=== PATIENT | female | born 2000 | race Caucasian/White ===

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

== ENCOUNTER → 2018-08-29 | Outpatient (REF) | payer OTHER, MEDICARE ==
[~2018-08-29] MED LIST: CIPR5SUS PO; FLAG250T PO; IBUP-1114 PO; IBUP1TAB7 PO; MACR100C43 PO; MAPA500T2 PO; PRENTAB9 PO; TUMS500C PO; ZOFR4TAB14 PO
== END ==
LOC: M SFHCPLAZ 17:49
PROVIDERS: ATTEND Dermatology
DX: D49.2 Neoplasm of unspecified behavior of bone, soft tissue, and skin (principal)

== ENCOUNTER → 2020-02-04 | Outpatient (CLI) | payer SELFPAY | LOC: M LABSMTC 12:45 | PROVIDERS: ATTEND Pediatrics | DX: Z20.828 Contact with and (suspected) exposure to other viral communicable diseases (principal) ==

== ENCOUNTER → 2020-02-11 | Outpatient (CLI) | payer SELFPAY | LOC: M LABSMTC 11:07 | PROVIDERS: ATTEND Pediatrics | DX: Z20.828 Contact with and (suspected) exposure to other viral communicable diseases (principal) ==

== ENCOUNTER 2021-06-10 19:51 | Emergency (ER) | payer MEDICARE, OTHER ==
[~2021-06-10] VITALS: Ht 152.4 cm; Wt 93.6 kg
[2021-06-10 20:02] VITALS: BP 147/70
[2021-06-10] MEDS ORDERED: ACETAMINOPHEN 325 MG TAB PO ONE (21:55)
[2021-06-10] MEDS ORDERED: NIRMATRELVIR/RITONAVIR CO-PACK (EMERGENCY USE AUTH) PO SCH (23:15)
[2021-06-11] MEDS ORDERED: NIRMATRELVIR/RITONAVIR CO-PACK (EMERGENCY USE AUTH) PO SCH (09:00)
== END 2021-06-11 01:59 | disposition home or self-care (01) ==
LOC: M ED 19:51
DX: O98.512 Other viral diseases complicating pregnancy, second trimester (principal); Z79.899 Other long term (current) drug therapy; Z88.8 Allergy status to other drugs, medicaments and biological substances

== ENCOUNTER → 2021-07-26 | Outpatient (CLI) | payer OTHER | LOC: M WHC 14:28 | PROVIDERS: ATTEND Advanced Practice Midwife | DX: O99.212 Obesity complicating pregnancy, second trimester (principal); Z3A.20 20 weeks gestation of pregnancy ==

== ENCOUNTER → 2021-09-06 | Outpatient (CLI) | payer OTHER | LOC: M WHC 12:03 | PROVIDERS: ATTEND Obstetrics & Gynecology | DX: Z36.2 Encounter for other antenatal screening follow-up (principal); Z3A.25 25 weeks gestation of pregnancy ==

== ENCOUNTER → 2021-09-14 | Outpatient (CLI) | payer OTHER ==
[2021-09-14 15:24] LABS: HEMATOCRIT 35.2 % (36.0-47.0); HEMOGLOBIN 11.6 g/dl (12.0-15.5); MEAN CORPUSCULAR HEMOGLOBIN 30.1 pg (27.0-33.0); MEAN CORPUSCULAR VOLUME 91.2 fl (80.0-96.0); PLATELET COUNT, AUTOMATED 259 10^3/uL (150-450); RED BLOOD COUNT 3.86 10^6/uL (4.00-5.40); WHITE BLOOD COUNT 13.8 10^3/uL (4.0-10.0)
[2021-09-14 17:17] LABS: GC DNA AMPLIFICATION NEGATIVE (NEGATIVE)
== END ==
LOC: M PLALAB 11:17
PROVIDERS: ATTEND Obstetrics & Gynecology
DX: Z34.82 Encounter for supervision of other normal pregnancy, second trimester (principal)

== ENCOUNTER → 2021-09-20 | Outpatient (CLI) | payer OTHER | LOC: M LAB 08:10 | PROVIDERS: ATTEND Obstetrics & Gynecology | DX: Z34.82 Encounter for supervision of other normal pregnancy, second trimester (principal) ==

== ENCOUNTER → 2021-10-15 | Outpatient (CLI) | payer OTHER | LOC: M WHC 13:36 | PROVIDERS: ATTEND Obstetrics & Gynecology | DX: O24.419 Gestational diabetes mellitus in pregnancy, unspecified control (principal) ==

== ENCOUNTER → 2021-10-28 | Outpatient (CLI) | payer OTHER ==
[2021-10-28 13:52] LABS: HEMOGLOBIN 11.4 g/dl (12.0-15.5); MEAN CORPUSCULAR HEMOGLOBIN 29.5 pg (27.0-33.0); MEAN CORPUSCULAR HGB CONC 33.5 g/dl (32.0-36.5); MEAN CORPUSCULAR VOLUME 88.1 fl (80.0-96.0); PLATELET COUNT, AUTOMATED 246 10^3/uL (150-450); RED BLOOD COUNT 3.86 10^6/uL (4.00-5.40); WHITE BLOOD COUNT 12.8 10^3/uL (4.0-10.0)
[2021-10-28 14:35] LABS: CREATININE,RANDOM URINE 83.5 MG/DL; TOTAL PROTEIN,RANDOM URINE 18.7 MG/DL (0.0-12.0)
[2021-10-28 14:41] LABS: ALBUMIN 2.7 GM/DL (3.2-5.2); ALT/SGPT 21 U/L (12-78); BILIRUBIN,TOTAL 0.2 MG/DL (0.2-1.0); BLOOD UREA NITROGEN 9 MG/DL (7-18); CALCIUM LEVEL 8.8 MG/DL (8.5-10.1); CARBON DIOXIDE LEVEL 21 MEQ/L (21-32); CHLORIDE LEVEL 109 MEQ/L (98-107); CREATININE FOR GFR 0.67 MG/DL (0.55-1.30); GLOMERULAR FILTRATION RATE > 60.0 (>60); GLUCOSE, FASTING 150 MG/DL (70-100); POTASSIUM SERUM 3.8 MEQ/L (3.5-5.1); SODIUM LEVEL 137 MEQ/L (136-145); TOTAL PROTEIN 6.2 GM/DL (6.4-8.2)
== END ==
LOC: M PLALAB 10:52
PROVIDERS: ATTEND Obstetrics & Gynecology
DX: O16.3 Unspecified maternal hypertension, third trimester (principal)

== ENCOUNTER → 2021-11-23 | Outpatient (REF) | payer OTHER | LOC: M SFHCWAGY 13:10 | PROVIDERS: ATTEND Obstetrics & Gynecology | DX: O24.410 Gestational diabetes mellitus in pregnancy, diet controlled (principal) ==

== ENCOUNTER → 2021-11-24 | Outpatient (CLI) | payer OTHER | LOC: M WHC 08:31 | PROVIDERS: ATTEND Obstetrics & Gynecology | DX: O24.410 Gestational diabetes mellitus in pregnancy, diet controlled (principal) ==

== ENCOUNTER 2021-11-30 09:30 | Inpatient (IN) | payer OTHER ==
[2021-11-30] VITALS (8 sets, daily range): BP systolic 135–155; BP diastolic 63–91
[~2021-11-30] VITALS: Ht 152.4 cm; Wt 93.4 kg
[2021-11-30] MEDS ORDERED: ACET-907 PO (09:45)
[2021-11-30] MEDS ORDERED: TUMS500C PO (09:45)
[2021-11-30] MEDS ORDERED: HOME MED LIST COMPLETE! XX SCH (09:50)
[2021-11-30 10:34] LABS: HEMATOCRIT 31.4 % (36.0-47.0); HEMOGLOBIN 10.4 g/dl (12.0-15.5); MEAN CORPUSCULAR HEMOGLOBIN 28.8 pg (27.0-33.0); MEAN CORPUSCULAR HGB CONC 33.1 g/dl (32.0-36.5); PLATELET COUNT, AUTOMATED 222 10^3/uL (150-450); RED BLOOD COUNT 3.61 10^6/uL (4.00-5.40); WHITE BLOOD COUNT 12.7 10^3/uL (4.0-10.0)
[2021-11-30] MEDS ORDERED: miSOPROStol 50MCG 1/2 TABLET PO ONE ×4 (10:40→23:55)
[2021-11-30] MEDS ORDERED: LACTATED RINGER'S 1000 ML IV PRN (10:40)
[2021-11-30] MEDS ORDERED: OXYTOCIN DRIP 30 UNITS in IV 1 EA IV PRN ×4 (10:40)
[2021-11-30] MEDS ORDERED: TRANEXAMIC ACID INJection 1,000 MG in NS 100 ML IV PRN (10:40)
[2021-11-30] MEDS ORDERED: CARBOPROST TROMETHAMINE 250 MCG/ML AMP IM PRN (10:40)
[2021-11-30] MEDS ORDERED: METHYLERGONOVINE MALEATE 0.2 MG/ML VIAL (J2210) IM PRN (10:40)
[2021-11-30 11:37] LABS: TOTAL PROTEIN,RANDOM URINE 38.8 MG/DL (0.0-12.0)
[2021-11-30 12:14] LABS: ALBUMIN 2.3 GM/DL (3.2-5.2); ALT/SGPT 16 U/L (12-78); BILIRUBIN,TOTAL 0.1 MG/DL (0.2-1.0); BLOOD UREA NITROGEN 10 MG/DL (7-18); CALCIUM LEVEL 8.3 MG/DL (8.5-10.1); CARBON DIOXIDE LEVEL 18 MEQ/L (21-32); CHLORIDE LEVEL 109 MEQ/L (98-107); CREATININE FOR GFR 0.59 MG/DL (0.55-1.30); GLOMERULAR FILTRATION RATE > 60.0 (>60); GLUCOSE, FASTING 96 MG/DL (70-100); POTASSIUM SERUM 3.9 MEQ/L (3.5-5.1); SODIUM LEVEL 137 MEQ/L (136-145); TOTAL PROTEIN 5.8 GM/DL (6.4-8.2)
[2021-12-01] VITALS (88 sets, daily range): BP systolic 120–198; BP diastolic 56–113
[2021-12-01] MEDS ORDERED: OXYTOCIN DRIP 30 UNITS in IV 1 EA IV SCH (04:15)
[2021-12-01] MEDS: LR 1,000 ML IV SCH ×2 (04:32→18:32)
[2021-12-01] MEDS ORDERED: NIFEdipine 10 MG CAP PO STA (08:08)
[2021-12-01] MEDS ORDERED: NIFEdipine 10 MG CAP PO ONE (08:40)
[2021-12-01] MEDS ORDERED: FENTANYL/ROPIVACAINE/NACL BAG 100 ML EPIDURAL SCH (11:45)
[2021-12-01] MEDS ORDERED: NALOXONE INJ 0.4MG/1ML VIAL (J2310 PER 1MG) IV PRN (11:45)
[2021-12-01] MEDS ORDERED: ePHEDrine SULFATE 25 MG/5 ML(5MG/ML) SYRINGE IV PRN (11:45)
[2021-12-01] MEDS ORDERED: REFRIGERATOR IV KEYS XX PRN (11:45)
[2021-12-01] MEDS ORDERED: diphenhydrAMINE 50MG/ML VIAL (J1200) IV PRN (11:45)
[2021-12-01] MEDS ORDERED: ONDANSETRON 4MG 2ML VIAL IV PRN (11:45)
[2021-12-01] MEDS ORDERED: EPIDURAL/PCA KEYS XX PRN (11:45)
[2021-12-01] MEDS ORDERED: EPIDURAL COMMENT XX SCH (11:45)
[2021-12-01] MEDS ORDERED: LACTATED RINGER'S 1000 ML IV PRN (11:45)
[2021-12-01] MEDS ORDERED: MAG Sulf (L&D) 4 GM/100 ML 4 GM in IV 1 EA IV ONE (14:25)
[2021-12-01] MEDS ORDERED: LABETALOL 100MG/20ML VIAL IV ONE ×2 (14:25→17:20)
[2021-12-01] MEDS ORDERED: LABETALOL 100MG/20ML VIAL As Ordered ONE (14:25)
[2021-12-01] MEDS ORDERED: CALCIUM GLUCONATE 1,000 MG in D5W MINI-BAG PLUS 100 ML IV PRN (14:25)
[2021-12-01] MEDS ORDERED: ACETAMINOPHEN 500 MG TAB PO ONE (14:40)
[2021-12-01] MEDS: MAG Sulf (OBGYN) 20GM/500ML 20,000 MG in IV 1 EA IV SCH (14:56)
[2021-12-01 15:20] LABS: HEMATOCRIT 34.2 % (36.0-47.0); HEMOGLOBIN 11.7 g/dl (12.0-15.5); MEAN CORPUSCULAR HEMOGLOBIN 29.3 pg (27.0-33.0); MEAN CORPUSCULAR HGB CONC 34.2 g/dl (32.0-36.5); MEAN CORPUSCULAR VOLUME 85.5 fl (80.0-96.0); PLATELET COUNT, AUTOMATED 258 10^3/uL (150-450); WHITE BLOOD COUNT 19.5 10^3/uL (4.0-10.0)
[2021-12-01 15:57] LABS: ALT/SGPT 18 U/L (12-78); BILIRUBIN,TOTAL 0.3 MG/DL (0.2-1.0); CREATININE FOR GFR 0.56 MG/DL (0.55-1.30); GLOMERULAR FILTRATION RATE > 60.0 (>60); LDH LACTATE DEHYDROGENASE 243 U/L (84-246); URIC ACID 4.2 MG/DL (2.6-6.0)
[2021-12-01] MEDS ORDERED: ACETAMINOPHEN 500 MG TAB PO PRN (17:10)
[2021-12-01] MEDS ORDERED: RHOGAM 300 MCG (1500 IU) INJ (J2790) IM SCH (17:10)
[2021-12-01] MEDS ORDERED: IBUPROFEN 600MG TAB PO PRN (17:10)
[2021-12-01] MEDS ORDERED: ACETAMINOPHEN TAB 650MG DOSE (2X325MG) PO PRN (17:10)
[2021-12-01] MEDS ORDERED: DIBUCAINE 1% OINTMENT 30GM TOP PRN (17:10)
[2021-12-01] MEDS ORDERED: DOCUSATE SODIUM 100MG CAPSULE PO PRN (17:10)
[2021-12-01] MEDS: LABETALOL 200 MG TAB PO SCH (20:46)
[2021-12-02] VITALS (19 sets, daily range): BP systolic 128–170; BP diastolic 64–87
[2021-12-02] MEDS: MAG Sulf (OBGYN) 20GM/500ML 20,000 MG in IV 1 EA IV SCH ×2 (01:00→11:08)
[2021-12-02] MEDS: LABETALOL 200 MG TAB PO SCH ×2 (08:56→20:02)
[2021-12-02] MEDS ORDERED: PRENATAL VITAMINS CHEWABLE TABLET PO SCH ×2 (09:00)
[2021-12-03 02:03] VITALS: BP 128/62
[2021-12-03 05:50] VITALS: BP 140/80
[2021-12-03] MEDS ORDERED: MEASLES,MUMPS,RUBELLA VACCINE INJ (MMR-II) (90707) SC.IMMUN ONE (09:00)
[2021-12-03 09:15] VITALS: BP 132/72
[2021-12-03] MEDS: LABETALOL 200 MG TAB PO SCH (09:15)
[2021-12-03 10:00] VITALS: BP 141/74
[2021-12-03] MEDS ORDERED: LABE200T5 PO (18:42)
== END 2021-12-03 13:05 | disposition home or self-care (01) | DRG 560 ==
LOC: M LDO 09:30 → M LDI 09:44 → M OBS 12-02 14:31
PROVIDERS: ADMIT Obstetrics & Gynecology; ATTEND Advanced Practice Midwife
PROC: 3E033VJ Introduction of Other Hormone into Peripheral Vein, Percutaneous Approach (ICD-10-PCS; 2021-11-30)
PROC: 10E0XZZ Delivery of Products of Conception, External Approach (ICD-10-PCS; principal; 2021-12-01)
DX: O14.14 Severe pre-eclampsia complicating childbirth (principal); E66.01 Morbid (severe) obesity due to excess calories; O24.420 Gestational diabetes mellitus in childbirth, diet controlled; O99.214 Obesity complicating childbirth; Z3A.38 38 weeks gestation of pregnancy; Z37.0 Single live birth

== ENCOUNTER → 2023-07-07 | Outpatient (REF) | payer OTHER ==
[~2023-07-07] MED LIST changes: +ACET-907 PO; +LABE200T5 PO
== END ==
LOC: M LAB REF 10:37
PROVIDERS: ATTEND Physician Assistant
DX: R30.0 Dysuria (principal)

== ENCOUNTER → 2023-08-11 | Outpatient (REF) | payer OTHER | LOC: M LAB REF 12:23 | PROVIDERS: ATTEND Physician Assistant | DX: R30.0 Dysuria (principal) ==

== ENCOUNTER → 2024-05-24 | Outpatient (CLI) | payer OTHER | LOC: M RAD 10:21 | PROVIDERS: ATTEND Family Medicine Addiction Medicine | DX: M25.552 Pain in left hip (principal) ==

== ENCOUNTER → 2024-09-10 | Outpatient (REF) | payer OTHER ==
[2024-09-10 15:50] LABS: ALT/SGPT 43 U/L (7.0-40); AST/SGOT 23 U/L (<34); CALCIUM LEVEL 8.8 MG/DL (8.5-10.1); CARBON DIOXIDE LEVEL 23 MMOL/L (20-31); CHLORIDE LEVEL 105 MMOL/L (98-107); CHOLESTEROL LEVEL 130 MG/DL (<200); CHOLESTEROL RISK RATIO 2.82 (<5); CREATININE FOR GFR 0.87 MG/DL (0.55-1.30); GLOMERULAR FILTRATION RATE > 90.0 (>60); LDL CHOLESTEROL 69.4 MG/DL (<100); NON-HDL-C 84.0 MG/DL; POTASSIUM SERUM 4.3 MMOL/L (3.5-5.1); SODIUM LEVEL 140 MMOL/L (136-145); TRIGLYCERIDES LEVEL 73 MG/DL (<150)
[2024-09-10 15:51] LABS: BASO # 0.1 10^3/uL (0.0-0.2); BASO % 0.6 % (0.0-1.0); EOS # 0.2 10^3/uL (0.0-0.5); EOS % 1.9 % (0.0-3.0); LYMPH # 3.0 10^3/uL (1.5-5.0); LYMPH % 31.3 % (24.0-44.0); MONO # 0.8 10^3/uL (0.0-0.8); MONO % 8.7 % (2.0-8.0); NEUTROPHILS # 5.5 10^3/uL (1.5-8.5); NEUTROPHILS % 56.9 % (36.0-66.0); PLATELET COUNT, AUTOMATED 354 10^3/uL (150-450)
[2024-09-10 15:58] LABS: ERYTHROCYTE SEDIMENTATION RATE 10 mm/hr (0-20)
== END ==
LOC: M LAB REF 14:23
PROVIDERS: ATTEND Family Medicine Addiction Medicine
DX: M25.50 Pain in unspecified joint (principal); I10 Essential (primary) hypertension

== ENCOUNTER → 2025-01-07 | Outpatient (REF) | payer OTHER ==
[~2025-01-07] MED LIST changes: -LABE200T5 PO; +LABE200T86 PO
== END ==
LOC: M LAB REF 22:28
PROVIDERS: ATTEND Physician Assistant Medical
DX: B34.9 Viral infection, unspecified (principal)